=== PATIENT | male | born 1945 | race Caucasian/White ===

== ENCOUNTER 2016-09-28 15:11 | Emergency (ER) | payer MEDICARE, OTHER ==
[2016-09-28 15:39] VITALS: BP 139/76
== END 2016-09-28 16:55 | disposition left against medical advice (07) ==
LOC: UCEAST 15:11
DX: S29.9XXA Unspecified injury of thorax, initial encounter (principal); X58.XXXA Exposure to other specified factors, initial encounter; Y93.9 Activity, unspecified; Y92.9 Unspecified place or not applicable; Z53.21 Procedure and treatment not carried out due to patient leaving prior to being seen by health care provider

== ENCOUNTER 2016-09-29 08:27 | Emergency (ER) | payer MEDICARE, OTHER ==
[2016-09-29 08:38] VITALS: BP 119/63
--- NOTE | 2016-09-29 10:53 | RAD ---
Indication: Right rib injury. 3 views of the right ribs demonstrates no fracture. No pneumothorax is noted. Lung jolley are otherwise clear. There is fracture of the left fifth rib posteriorly. IMPRESSION: No fracture of the right ribs is noted.
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
== END 2016-09-29 11:05 | disposition home or self-care (01) ==
LOC: UCEAST 08:27
DX: S20.20XA Contusion of thorax, unspecified, initial encounter (principal); W18.30XA Fall on same level, unspecified, initial encounter; Y93.9 Activity, unspecified; Y92.9 Unspecified place or not applicable; I10 Essential (primary) hypertension; Z87.891 Personal history of nicotine dependence
CPT/HCPCS: 99212; G0463

== ENCOUNTER 2018-01-23 05:57 | Inpatient (IN) | payer MEDICARE, OTHER ==
--- NOTE | 2018-01-10 18:59 | HP ---
HISTORY AND PHYSICAL: DATE OF ADMISSION: 01/23/18 He is entering the hospital on 01/23/18 for a left total knee replacement. CHIEF COMPLAINT: Left knee pain and swelling. HISTORY OF PRESENT ILLNESS: The patient has had left knee problems over the last couple of years. He had an arthroscopic surgery about 10 months ago and that was not successful for him. He has had continued left knee pain, especially after prolonged sitting, a lot of difficulty getting off the floor. There has been pain. There has been catching. There has been swelling. There have been no fevers or chills. He has been eating and drinking without difficulty. We would like to be walking and doing stairs more comfortably and playing golf, and for this reason, a left total knee was recommended. He has severe arthritis in the lateral compartment of the left knee. PAST MEDICAL HISTORY: He is cared for by Dr. Cortez. No history of heart attack or chest pain. No history of DVT or pulmonary embolism. No bleeding tendencies. No cancers. He has had right leg weakness since his childhood and he has had low back surgery with right sciatica. The left knee pain currently is mainly lateral knee, lateral thigh radiates distally, lateral smart some, and sometimes goes to his left low back. 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 Disturbance of consciousness. Anxiety. MEDICATIONS: Daily meds: 1. Melatonin 10 mg. 2. Lamotrigine 100 mg for seizure disorder. No recent seizures. 3. Lisinopril/hydrochlorothiazide 20/12.5 mg 1 a day. 4. Aspirin 81 mg each day. 5. Zolpidem 12.5 mg at bedtime. ALLERGIES: No known allergies. No allergies to metal. SOCIAL HISTORY: He quit smoking 40 years ago. Alcohol was minimal to none. PHYSICAL EXAMINATION GENERAL: Current examination, well nourished, well developed, not acutely distressed. VITAL SIGNS: Respirations 17, pulse 74, blood pressure 143/84. Weight 212 pounds, height 68 inches. His pain varies in the left knee from 3 to 6/10. LUNGS: Clear. HEART: Regular. S1, S2 normal. No murmurs or gallops. ABDOMEN: Round, soft, nontender. I do not appreciate organomegaly. EXTREMITIES: Left knee shows an effusion with extension 0, flexion 110, satisfactory overall alignment. Thigh and calf are soft. His right smart and calf are smaller than his left. The patient is able to do a straight leg raise without any difficulty. Left knee extension 0, flexion 110, stable MCL and LCL. Some swelling bilaterally of the legs and ankles. NEUROLOGIC: The cranial nerves are grossly intact. DIAGNOSTIC STUDIES: X-rays, severe arthritis of the left knee in the lateral compartment. IMPRESSION: Severe left knee arthritis. PLAN: Left total knee replacement. The goals, risks, and complications of the surgical care have been reviewed with the patient in my office. [id number]/CPS #: [id number] MTDD
[~2018-01-23 05:57] MED LIST: Buffered Lidocaine 0.9% SYRIN* 5 ML/SYR SYRINGE INTRADERM ONE
[2018-01-23] MEDS ORDERED: Famotidine IV* 10 MG/ML 2 ML (20 mg) IV ONE (06:00)
--- OUTSIDE RECORDS SUMMARY | 2018-01-23 06:02 | XMS REPORT ---
:1945 External Reference #:[id number] Author Organization [facility] Address [address] [place] [address] Phone [phone] Care Team Providers Name Role Phone Faisal Cortez MD Primary Care Physician Unavailable Payers Type Date Identification Numbers Payment Provider Subscriber Medicare Primary Effective: Policy Number: Medicare Virgilio Silva 2012 [id number] PayID: [id number] [address] [place] [address] Medigap Part B Policy Number: [id number] [employer] Virgilio Silva Group Number: [id number] [address] PayID: [id number] [place] [address] Medigap Part B Policy Number: [id number] Medicare Virgilio Silva PayID: [id number] [address] [place] [address] Problems Date Description Provider Status Onset: 04/30/2014 Localization-related epilepsy Aaron Bajwa M.D. 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 Cigarette Use Former Cigarette Smoker quit at age 46 ETOH Use Rarely consumes alcohol Smoking Patient is a former smoker Recreational Drug Use Denies Drug Use Daily Caffeine Consumes on average 3 cups of regular coffee per day Exercise Type/Frequency 02/05/2015 Exercises sporadically Golf, stationary bike, walks ocassionally Allergies, Adverse Reactions, Alerts Date Description Reaction Status Severity Comments 01/22/2013 NKDA active Medications Medication Date Status Form Strength Qnty SIG Indications Ordering Provider Melatonin ER 11/28 Active Tablets 10mg 1 by mouth Marybeth Joiner ER every MD night at bedtime Lamotrigine 05/01 Active Tablets 100mg 180ta 3 tabs by Leonard rob Rob M.D. twice a day Lisinopril-Spencer Active Tablets 20-12.5mg 1 by mouth Unknown chlorothiazide /0000 every day Aspirin Active Tablets 81mg 1 by mouth Unknown /0000 every day Cyclobenzaprine Active Tablets 10mg TK 1 T PO Unknown HCL / qd hs Zolpidem Active Tablets 12.5mg 1 Tab AT Unknown Tartrate ER / ER hs Percocet 04/12 Hx Tablets 5-325mg 20tab take 1 s tabs as MD Zayda - needed for 09/05 pain 6 hours. do not combine with tylenol Melatonin ER 02/04 Hx Tablets 3mg 30tab 1 tablet Marybeth Joiner ER s at night 1 MD - to 2 hours 11/28 before bedtime Lamotrigine 02/07 Hx Tablets 200mg 60tab 1 twice a Aaron SGenevieve s Vida Kamara M.D. 05/01 Citalopram Hx Tablets 20mg 30tab 1 po qd Unknown Hydrobromide /0000 s - 12/03 Lisinopril Hx Tablets 10mg 90tab 1 po qd Unknown /0000 s - 06/05 Sleep Aid Hx Tablets 25mg 1 po qhs Unknown /0000 - 06/10 Clonazepam Hx Tablets 0.5mg 1 by mouth Unknown /0000 twice a - day as 06/05 Ambien Hx Tablets 10mg one by Unknown /0000 mouth at - bedtime as 12/03 needed sleep Prilosec Hx Capsules 40mg 1 by mouth Unknown /0000 DR every day - 06/07 Mobic Hx Tablets 15mg once daily Unknown /0000 with food - 06/07 Ultram Hx Tablets 50mg 1-2 by Unknown /0000 mouthevery - 6 hours as 02/03 Flexeril Hx 10mg 1 tab at Unknown /0000 bedtime - 06/07 OTC Sleep Aid Hx 1 po qhs Unknown /0000 prn - 11/27 Medications Administered in Office Medication Date Status Form Strength Qnty SIG Indications Ordering Provider Depomedrol Administered Injection Dirk Clayton, 40MG 018 M.D. Depomedrol Administered Injection Dirk Clayton, 40MG 017 M.D. Vital Signs Date Vital Result Comment 01/10/2018 Height 68.5 inches 5'8.50" Weight 212.00 lb Heart Rate 74 /min BP Systolic 143 mmHg BP Diastolic 84 mmHg Respiratory Rate 17 /min Body Temperature 98.1 F Pain Level 3 BMI (Body Mass Index) 31.8 kg/m2 11/29/2017 Height 68.5 inches 5'8.50" Weight 205.00 lb Heart Rate 77 /min BP Systolic 153 mmHg BP Diastolic 87 mmHg Body Temperature 98.0 F BMI (Body Mass Index) 30.7 kg/m2 11/28/2017 Height 68.5 inches 5'8.50" Weight 215.50 lb Heart Rate 76 /min BP Systolic 172 mmHg BP Diastolic 102 mmHg BMI (Body Mass Index) 32.3 kg/m2 10/16/2017 Height 68.5 inches 5'8.50" Weight 205.00 lb BP Systolic 128 mmHg BP Diastolic 78 mmHg Respiratory Rate 18 /min Body Temperature 98.1 F Pain Level 3 BMI (Body Mass Index) 30.7 kg/m2 09/06/2017 Height 68.5 inches 5'8.50" Weight 205.00 lb BP Systolic 132 mmHg BP Diastolic 78 mmHg Respiratory Rate 18 /min Body Temperature 98.2 F Pain Level 7 BMI (Body Mass Index) 30.7 kg/m2 04/24/2017 Height 68.5 inches 5'8.50" Weight 202.00 lb BP Systolic 130 mmHg BP Diastolic 68 mmHg Respiratory Rate 18 /min Body Temperature 97.5 F Pain Level 0 BMI (Body Mass Index) 30.3 kg/m2 04/03/2017 Height 68.5 inches 5'8.50" Weight 202.00 lb BP Systolic 130 mmHg BP Diastolic 72 mmHg Respiratory Rate 18 /min Pain Level 7 BMI (Body Mass Index) 30.3 kg/m2 03/13/2017 Height 68.5 inches 5'8.50" Weight 202.00 lb BP Systolic 140 mmHg BP Diastolic 76 mmHg Respiratory Rate 18 /min Pain Level 0 BMI (Body Mass Index) 30.3 kg/m2 02/27/2017 Height 68.5 inches 5'8.50" Weight 202.00 lb Heart Rate 76 /min BP Systolic Sitting 130 mmHg BP Diastolic Sitting 78 mmHg Body Temperature 97.9 F BMI (Body Mass Index) 30.3 kg/m2 11/28/2016 Height 67.5 inches 5'7.50" Weight 216.00 lb Heart Rate 68 /min BP Systolic Sitting 120 mmHg BP Diastolic Sitting 70 mmHg Respiratory Rate 12 /min BMI (Body Mass Index) 33.3 kg/m2 12/08/2015 Height 67.5 inches 5'7.50" Weight 208.00 lb Heart Rate 80 /min BP Systolic Sitting 130 mmHg BP Diastolic Sitting 70 mmHg Respiratory Rate 16 /min BMI (Body Mass Index) 32.1 kg/m2 03/31/2015 Height 67.5 inches 5'7.50" Weight 206.00 lb with shoes Heart Rate 76 /min BP Systolic Sitting 136 mmHg LA, reg cuff BP Diastolic Sitting 84 mmHg LA, reg cuff BP Systolic Standing 136 mmHg LA BP Diastolic Standing 86 mmHg LA Respiratory Rate 16 /min BMI (Body Mass Index) 31.8 kg/m2 Ejection Fraction 55-60% 02/12/15 Stress Echo 02/06/2015 Height 67.5 inches 5'7.50" Weight 205.00 lb Heart Rate 80 /min BP Systolic Sitting 120 mmHg BP Diastolic Sitting 78 mmHg Respiratory Rate 17 /min BMI (Body Mass Index) 31.6 kg/m2 02/05/2015 Height 67.5 inches 5'7.50" Weight 202.00 lb w/o shoes Heart Rate 86 /min reg BP Systolic 126 mmHg Lue, reg cuff BP Diastolic 88 mmHg Lue, reg cuff BP Systolic Sitting 140 mmHg Rue, reg cuff BP Diastolic Sitting 90 mmHg Rue, reg cuff BP Systolic Standing 130 mmHg Rue BP Diastolic Standing 86 mmHg Rue Respiratory Rate 18 /min BMI (Body Mass Index) 31.2 kg/m2 04/30/2014 Height 67.5 inches 5'7.50" Weight 208.00 lb Heart Rate 64 /min BP Systolic Sitting 150 mmHg BP Diastolic Sitting 88 mmHg Respiratory Rate 16 /min BMI (Body Mass Index) 32.1 kg/m2 01/21/2014 Height 67.5 inches 5'7.50" Weight 207.00 lb Heart Rate 80 /min BP Systolic Sitting 152 mmHg BP Diastolic Sitting 82 mmHg Respiratory Rate 16 /min BMI (Body Mass Index) 31.9 kg/m2 10/08/2013 Height 69 inches 5'9" Weight 215.00 lb Heart Rate 68 /min BP Systolic Sitting 120 mmHg BP Diastolic Sitting 80 mmHg Respiratory Rate 16 /min BMI (Body Mass Index) 31.7 kg/m2 01/22/2013 Heart Rate 68 /min BP Systolic Sitting 146 mmHg BP Diastolic Sitting 84 mmHg Respiratory Rate 12 /min Results Test Date Test Result H/L Range Note Laboratory test 04/11/2017 Surgical Pathology SEE RESULT BELOW 1 finding CBC Auto Diff 12/01/2016 White Blood Count 4.6 10^3/uL 3.5-10.8 Red Blood Count 4.41 10^6/uL 4.0-5.4 Hemoglobin 14.3 g/dL 14.0-18.0 Hematocrit 42 % 42-52 Mean Corpuscular Volume 96 fL High 80-94 Mean Corpuscular Hemoglobin 33 pg High 27-31 Mean Corpuscular HGB Conc 34 g/dL 31-36 Red Cell Distribution Width 13 % 10.5-15 Platelet Count 196 10^3/uL 150-450 Mean Platelet Volume 9 um3 7.4-10.4 Abs Neutrophils 2.2 10^3/uL 1.5-7.7 Abs Lymphocytes 1.6 10^3/uL 1.0-4.8 Abs Monocytes 0.5 10^3/uL 0-0.8 Abs Eosinophils 0.1 10^3/uL 0-0.6 Abs Basophils 0 10^3/uL 0-0.2 Abs Nucleated RBC 0 10^3/uL Granulocyte % 48.6 % 38-83 Lymphocyte % 36.1 % 25-47 Monocyte % 11.4 % High 1-9 Eosinophil % 3.1 % 0-6 Basophil % 0.8 % 0-2 Nucleated Red Blood Cells % 0 Comp Metabolic Panel 12/01/2016 Sodium 145 mmol/L 133-145 Potassium 4.7 mmol/L 3.5-5.0 Chloride 110 mmol/L 101-111 Co2 Carbon Dioxide 26 mmol/L 22-32 Anion Gap 9 mmol/L 2-11 Glucose 97 mg/dL 70-100 Blood Urea Nitrogen 15 mg/dL 6-24 Creatinine 0.97 mg/dL 0.67-1.17 BUN/Creatinine Ratio 15.5 8-20 Calcium 9.3 mg/dL 8.6-10.3 Total Protein 6.9 g/dL 6.4-8.9 Albumin 4.6 g/dL 3.2-5.2 Globulin 2.3 g/dL 2-4 Albumin/Globulin Ratio 2.0 1-3 Total Bilirubin 0.60 mg/dL 0.2-1.0 Alkaline Phosphatase 75 U/L 34-104 Alt 17 U/L 7-52 Ast 18 U/L 13-39 Egfr Non- 76.7 >60 Egfr 98.7 >60 2 Laboratory test finding 12/01/2016 Lamotrigine (Lamictal) 9.9 g/mL 2.5 - 15.0 3 Comp Metabolic Panel 12/10/2015 Sodium 136 mmol/L 133-145 Potassium 4.3 mmol/L 3.5-5.0 Chloride 102 mmol/L 101-111 Co2 Carbon Dioxide 26 mmol/L 22-32 Anion Gap 8 mmol/L 2-11 Glucose 141 mg/dL High 70-100 Blood Urea Nitrogen 16 mg/dL 6-24 Creatinine 1.01 mg/dL 0.67-1.17 BUN/Creatinine Ratio 15.8 8-20 Calcium 9.4 mg/dL 8.6-10.3 Total Protein 6.5 g/dL 6.4-8.9 Albumin 4.0 g/dL 3.2-5.2 Globulin 2.5 g/dL 2-4 Albumin/Globulin Ratio 1.6 1-3 Total Bilirubin 0.40 mg/dL 0.2-1.0 Alkaline Phosphatase 60 U/L 34-104 Alt 15 U/L 7-52 Ast 17 U/L 13-39 Egfr Non- 73.5 >60 Egfr 94.5 >60 4 CBC Auto Diff 12/10/2015 White Blood Count 4.7 10^3/uL 3.5-10.8 Red Blood Count 4.32 10^6/uL 4.0-5.4 Hemoglobin 13.9 g/dL Low 14.0-18.0 Hematocrit 40 % Low 42-52 Mean Corpuscular Volume 94 fL 80-94 Mean Corpuscular Hemoglobin 32 pg High 27-31 Mean Corpuscular HGB Conc 34 g/dL 31-36 Red Cell Distribution Width 13 % 10.5-15 Platelet Count 201 10^3/uL 150-450 Mean Platelet Volume 8 um3 7.4-10.4 Abs Neutrophils 2.8 10^3/uL 1.5-7.7 Abs Lymphocytes 1.4 10^3/uL 1.0-4.8 Abs Monocytes 0.3 10^3/uL 0-0.8 Abs Eosinophils 0.1 10^3/uL 0-0.6 Abs Basophils 0.1 10^3/uL 0-0.2 Abs Nucleated RBC 0 10^3/uL Granulocyte % 58.5 % 38-83 Lymphocyte % 29.7 % 25-47 Monocyte % 6.2 % 1-9 Eosinophil % 3.1 % 0-6 Basophil % 2.5 % High 0-2 Nucleated Red Blood Cells % 0.1 Laboratory test finding 12/10/2015 Lamotrigine (Lamictal) 9.7 g/mL 2.5 - 15.0 5 Laboratory test finding 12/30/2013 Lamotrigine 8.6 g/mL 2.5 - 15.0 6 Laboratory test finding 10/14/2013 Amylase 32 U/L 29-103 Lipase 19 U/L 11.0-82.0 Comp Metabolic Panel 10/14/2013 Sodium 138 mmol/L 133-145 Potassium 4.9 mmol/L 3.7-5.6 Chloride 105 mmol/L 101-111 Co2 Carbon Dioxide 28 mmol/L 22-32 Anion Gap 5 mmol/L 2-11 Glucose 94 mg/dL 70-100 Blood Urea Nitrogen 15 mg/dL 6-24 Creatinine 0.87 mg/dL 0.67-1.17 BUN/Creatinine Ratio 17.2 8-20 Calcium 9.3 mg/dL 8.6-10.3 Total Protein 6.4 g/dL 6.4-8.9 Albumin 4.3 g/dL 3.2-5.2 Globulin 2.1 g/dL 2-4 Albumin/Globulin Ratio 2.0 1-3 Total Bilirubin 0.40 mg/dL 0.2-1.0 Alkaline Phosphatase 87 U/L 34-104 Alt 11 U/L 7-52 Ast 13 U/L 13-39 Egfr Non- 87.8 >60 Egfr 112.9 >60 7 CBC No Diff 10/14/2013 White Blood Count 4.0 10^3/uL Low 4.8-10.8 Red Blood Count 4.04 10^6/uL 4.0-5.4 Hemoglobin 12.4 g/dL Low 14.0-18.0 Hematocrit 36 % Low 42-52 Mean Corpuscular Volume 90 fL 80-94 Mean Corpuscular Hemoglobin 31 pg 27-31 Mean Corpuscular HGB Conc 34 g/dL 31-36 Red Cell Distribution Width 14 % 10.5-15 Platelet Count 212 10^3/uL 150-450 Mean Platelet Volume 9 um3 7.4-10.4 Laboratory test finding 10/14/2013 Lamotrigine 9.2 g/mL 2.5 - 15.0 8 1 SEE RESULT BELOW Name: VIRGILIO SILVA : [address]: Doug Arnold MD Acct: [id number] Unit: [id number] AGE: 72 Location: OR Re04/11/17 SEX: M Status: DEP ARC SPEC: [id number] DAMON: 04/11/[address] [facility] [address]: Doug Arnold MD REQ: [id number] RECD: 04/11/17 STATUS: SOUT _ ORDERED: LEVEL 3 FINAL DIAGNOSIS Knee, left, arthroscopic shavings: -- Benign cartilaginous tissue. PRE-OPERATIVE DIAGNOSIS Left knee lateral meniscal tear GROSS DESCRIPTION The specimen is received fresh labeled, Shavings Left Knee, and consists of a 3.6 x 3.2 x 0.6 cm aggregate of yellow and white tissue fragments. Coin Counter And Wrapper sections, one cassette. Signed (signature on file) Milagros Up MD 02/19 0916 END OF REPORT * ML=Testing performed at Main Lab DEPARTMENT OF PATHOLOGY, [address] [place] [address] Gio Carter M.D. Director [facility] # [id number] 2 Because ethnic data is not always readily available, this report includes an eGFR for both -Americans and non- Americans. The National Kidney Disease Education Program (NKDEP) does not endorse the use of the MDRD equation for patients that are not between the ages of 18 and 70, are , have extremes of body size, muscle mass, or nutritional status, or are non- or non-. According to the National Kidney Foundation, irrespective of diagnosis, the stage of the disease is based on the level of kidney function: Stage Description GFR(mL/min/1.73 m(2)) 1 Kidney damage with normal or decreased GFR 90 2 Kidney damage with mild decrease in GFR 60-89 3 Moderate decrease in GFR 30-59 4 Severe decrease in GFR 15-29 5 Kidney failure <15 (or dialysis) 3 ADDITIONAL INFORMATION This test was developed and its performance characteristics determined by [facility] in a manner consistent with CLIA requirements. This test has not been cleared or approved by the U.S. Food and Drug Administration. Test Performed by: [place] [address] 4 Because ethnic data is not always readily available, this report includes an eGFR for both -Americans and non- Americans. The National Kidney Disease Education Program (NKDEP) does not endorse the use of the MDRD equation for patients that are not between the ages of 18 and 70, are , have extremes of body size, muscle mass, or nutritional status, or are non- or non-. According to the National Kidney Foundation, irrespective of diagnosis, the stage of the disease is based on the level of kidney function: Stage Description GFR(mL/min/1.73 m(2)) 1 Kidney damage with normal or decreased GFR 90 2 Kidney damage with mild decrease in GFR 60-89 3 Moderate decrease in GFR 30-59 4 Severe decrease in GFR 15-29 5 Kidney failure <15 (or dialysis) 5 Test Performed by: [place] [address] [place] [employer]: Wesley Quinones II, M.D., Ph.D. 6 Test Performed by: [place] [address] [place] [employer]: Darius Gordillo III, M.D. 7 Because ethnic data is not always readily available, this report includes an eGFR for both -Americans and non- Americans. The National Kidney Disease Education Program (NKDEP) does not endorse the use of the MDRD equation for patients that are not between the ages of 18 and 70, are , have extremes of body size, muscle mass, or nutritional status, or are non- or non-. According to the National Kidney Foundation, irrespective of diagnosis, the stage of the disease is based on the level of kidney function: Stage Description GFR(mL/min/1.73 m(2)) 1 Kidney damage with normal or decreased GFR 90 2 Kidney damage with mild decrease in GFR 60-89 3 Moderate decrease in GFR 30-59 4 Severe decrease in GFR 15-29 5 Kidney failure <15 (or dialysis) 8 Test Performed by: [place] [id number] [place] [employer]: Darius Gordillo III, M.D. Procedures Date CPT Code Description Status 09/06/2017 95278 Inject/Drain Joint/Bursa Major W/O US Completed 04/11/2017 84211 Arthroscopy,Knee,Meniscectomy Medial Or Lateral Completed 04/11/2017 16807 Arthroscopy,Knee,Meniscectomy Medial Or Lateral Completed 04/11/2017 34288 Arthroscopy, Knee,Surgical;Debridement/Shaving Completed Articular Cartldg 04/11/2017 64126 Arthroscopy, Knee,Surgical;Debridement/Shaving Completed Articular Cartldg 02/27/2017 20826 Inject/Drain Joint/Bursa Major W/O US Completed 01/09/2017 85834 Polysomnography Sleep Staging 4+ Parameters Completed 02/12/2015 20959 ECHO Stress Test Incl Perf Contiuous ekg Monitoring Completed W/Phys Superv 02/05/2015 09981 EKG Tracing & Interpretation Completed 11/05/2008 54054 EKG, Interpretation Only Completed Encounters Type Date Location Provider CPT E/M Dx Office Visit 11/29/2017 [facility] M.D. 86580 M17.12 2:45p C.M.A. Office Visit 11/28/2017 [facility] [address] G40.219 9:30a G93.81 R40.0 I10 Office Visit 10/16/2017 9:45a [facility] M.D. 62415 M17.12 C.M.A. Office Visit 09/06/2017 9:30a [facility] M.D. 88355 M17.12 C.M.A. Office Visit 04/03/2017 3:15p [facility] M.D. 59481 S83.262D C.M.A. S83.282A Office Visit 03/13/2017 10:45a [facility] M.D. 65138 S83.262D C.M.A. M17.12 Office Visit 02/27/2017 9:45a [facility] M.D. 49882 S83.262A C.M.A. M17.12 S83.242A S83.282A Office Visit 11/28/2016 9:30a [facility] [place] [address] G40.209 Services Of Senior Web Engineer R40.0 Office Visit 12/08/2015 2:30p [place] [address] G40.209 Services Of Senior Web Engineer Office Visit 03/31/2015 11:20a [facility], 52694 I73.9 Senior Web Engineer DO FACC G40.209 R94.31 I10 Office Visit 02/06/2015 2:00p [place] [address] 345.41 Services Of Senior Web Engineer Office Visit 02/05/2015 11:00a [facility], 04047 443.9 Senior Web Engineer DO FACC 794.31 Office Visit 04/30/2014 11:45a [facility] Aaron Bajwa 40178 345.41 Services Of Senior Web Engineer M.D. 348.81 Office Visit 01/21/2014 1:30p [facility] Aaron Bajwa 51370 345.41 Services Of Senior Web Engineer M.D. 348.81 Office Visit 10/08/2013 9:30a [facility] Aaron Bajwa 35642 348.81 Services Of Senior Web Engineer M.D. 345.41 Office Visit 01/22/2013 8:45a [facility] Aaron Bajwa 95385 345.40 Services Of Senior Web Engineer M.D. 348.81 Office Visit 10/03/2012 10:15a [facility] Aaron Bajwa 01952 348.81 Services Of Senior Web Engineer M.D. 345.41 Office Visit 05/01/2012 10:45a [facility] Aaron Bajwa, 50635 345.41 Services Of Sade Silva 348.81 Plan of Care Future Appointment(s):01/23/2018 7:30 pm - FELIPE Braxton at [facility]..01/23/2018 7:30 pm - Doug Arnold M.D. at [facility].01/10/2018 - Doug Arnold M.D.M17.12 Unilateral primary osteoarthritis, left kneeFollow up:Left knee replacement January 23, 2018 Stay active and do left knee exercises
[2018-01-23] MEDS ORDERED: ceFAZolin 2 GM PREMIX (*) 2 GM/50 ML BAG IVPB ONE (06:07)
[2018-01-23] MEDS ORDERED: Famotidine IV* 10 MG/ML 2 ML (20 mg) ONE (06:07)
[2018-01-23] MEDS ORDERED: Tranexamic Acid 1,000 MG/10 ML 1,000 MG in NS 0.9% 100 ML* 100 ML IV ONE (07:00)
[2018-01-23] MEDS ORDERED: ROPIVACAINE 5 MG/ML 30 ML BTL (0.5%) ONE ×3 (07:23→08:50)
[2018-01-23] MEDS ORDERED: Lidocaine 1%* 5 ML VIAL ONE (07:29)
[2018-01-23] MEDS ORDERED: fentaNYL* 50 MCG/ML 2 ML VIAL (100 MCG VIAL) ONE ×2 (07:29→08:27)
[2018-01-23] MEDS ORDERED: Midazolam* 1 MG/ML 5 ML VIAL (5 MG) ONE (07:30)
[2018-01-23] MEDS ORDERED: KETAMINE HCL* 50 MG/ML 10 ML VIAL ONE (07:48)
[2018-01-23] MEDS ORDERED: Lidocain 1% EPI 1:100,000 * 30 ML MDV ONE (08:06)
[2018-01-23] MEDS ORDERED: Naloxone* 0.4 MG/ML 1 ML VIAL IV PRN (08:46)
[2018-01-23] MEDS ORDERED: oxyCODONE/Acetamin 5/325 MG* TAB PO PRN (08:46)
[2018-01-23] MEDS ORDERED: DiMENhydriNATE IV* 50 MG/ML VIAL IV PUSH PRN (08:46)
[2018-01-23] MEDS ORDERED: Lidocaine 1% MPF wEPI 200,000* 30 ML SDV ONE (08:50)
[2018-01-23] MEDS ORDERED: Ketorolac INJ* 30 MG/ML 1 ML VIAL ONE (09:07)
[2018-01-23] MEDS ORDERED: Propofol* 10 MG/ML 20 ML BTL IV PUSH ONE (09:07)
[2018-01-23] MEDS ORDERED: Ondansetron INJ* 2 MG/ML VIAL ONE (09:07)
[2018-01-23] MEDS ORDERED: Lidocaine 2% PF * 5 ML VIAL ONE (09:07)
[2018-01-23] MEDS ORDERED: Dexamethasone IV* 4 MG/ML 1 ML (4 MG) ONE (09:07)
[2018-01-23] MEDS ORDERED: Artificial Tears* 15 ML BTL ONE (09:08)
[2018-01-23] MEDS ORDERED: HYDROmorphone INJ* 0.5 MG/0.5 ML SYRINGE ONE ×3 (09:43→11:13)
[2018-01-23] MEDS ORDERED: Ondansetron INJ* 2 MG/ML VIAL IV PRN (10:54)
[2018-01-23] MEDS ORDERED: oxyCODONE TAB* 5 MG TAB PO PRN (10:54)
[2018-01-23] MEDS ORDERED: Docusate CAP* 100 MG PO PRN (10:54)
[2018-01-23] MEDS ORDERED: Cyclobenzaprine TAB* 10 MG PO PRN (10:54)
[2018-01-23] MEDS ORDERED: diPHENhydraMINE IV* 50 MG/ML 1 ml VIAL (BENADRYL) IV PRN (10:54)
[2018-01-23] MEDS ORDERED: Ondansetron ODT TAB* 4 MG PO PRN (10:54)
[2018-01-23] MEDS ORDERED: Magnesium Hydroxide LIQ* 30 ML UDC PO PRN (10:54)
[2018-01-23] MEDS ORDERED: Morphine INJ* 2 MG/ML 1 ML SYRINGE (TWO MG - NEW SYRINGE VERSION) IV PRN (10:54)
[2018-01-23] MEDS ORDERED: diPHENhydraMINE PO* 25 MG PO PRN (10:54)
[2018-01-23] MEDS: HYDROmorphone INJ* 0.5 MG/0.5 ML SYRINGE IV PRN ×5 (10:57→12:01)
[2018-01-23] MEDS ORDERED: Acetaminophen TAB* 325 MG PO SCH (11:00)
[2018-01-23] MEDS ORDERED: traMADol TAB* 50 MG PO SCH (11:00)
[2018-01-23] MEDS ORDERED: ZOLPIDEM 10 MG PO PRN (11:01)
[2018-01-23] MEDS ORDERED: oxyCODONE/Acetamin 5/325 MG* TAB ONE (11:32)
[2018-01-23] MEDS ORDERED: hydrALAZINE IV* 20 MG/ML VIAL IV SLOW PU PRN (12:33)
--- NOTE | 2018-01-23 12:34 | RAD ---
INDICATION: Status post total left knee replacement surgery. COMPARISON: Comparison is made with a prior study from September 06, 2017. TECHNIQUE: 2 views of the left knee were obtained. FINDINGS: The patient is status post total left knee replacement surgery. The bones and prostheses are in normal alignment. There are 2 surgical drains present anterior. The surgical hardware appears intact. There are multiple surgical efren which project anteriorly over the midline. IMPRESSION: STATUS POST TOTAL LEFT KNEE REPLACEMENT SURGERY.
[2018-01-23] MEDS ORDERED: hydrALAZINE IV* 20 MG/ML VIAL ONE (12:36)
--- NOTE | 2018-01-23 14:38 | CONS ---
CC: Dr. Cortez; Dr. Arnold * CONSULTATION REPORT: DATE OF CONSULT: 01/23/18 PRIMARY CARE PROVIDER: Dr. Cortez. REQUESTING PHYSICIAN FOR CONSULT: Dr. Arnold. MY ATTENDING PHYSICIAN WHILE IN THE HOSPITAL: Dr. Torres (report dictated by Iván Martinez NP). REASON FOR MEDICAL CONSULTATION: Evaluation and medical management of comorbid medical conditions. HISTORY OF PRESENT ILLNESS: I will refer you to Dr. Arnold's H and P for further details. In short, Mr. Silva is a 72-year-old male patient who has been dealing with left knee pain for some time. He had been failing conservative therapy. He sought care with Dr. Arnold and the patient was brought to the OR today for an elective total knee replacement. He carries a history of seizures, epilepsy. He also carries a history of anxiety, hypertension. He was evaluated in the PACU. He states his pain is about 3/10. He states he is not feeling nauseated. He just feels a little tired. Denies feeling lightheaded or dizzy. He states he is not having any chest pain or shortness of breath. He denies having any abdominal pain. He states he does not feel nauseous. The last time that he had a grand mal seizure was when he was being evaluated at the EMU up in [place]. He said he is otherwise well controlled. He is back driving. He is currently just on Lamictal twice a day and he takes this religiously. He denies having any recent change in medications. Because of his medical complexity, we were asked to evaluate in consult. PAST MEDICAL HISTORY: Significant for: 1. Epilepsy. 2. Anxiety. 3. Hypertension. 4. 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 PAST SURGICAL HISTORY: He has had a left knee arthroplasty. Today, he had a left total knee replacement and he has had spinal surgery. MEDICATIONS: Home meds according to the list that he provided preop include: 1. Ambien 10 mg at bedtime as needed. 2. Lamictal 300 mg p.o. b.i.d. 3. Lisinopril 10 mg p.o. daily. 4. Ibuprofen 800 mg every 8 hours as needed. 5. Aspirin 81 mg a day. ALLERGIES TO MEDICATIONS: Include no known drug allergies. FAMILY HISTORY: He says his mother at the age of 98 from old age. Father' s history is unknown, when the patient was very young. SOCIAL HISTORY: The patient is a former smoker. He no longer smokes. He does drink alcohol occasionally. Surrogate decision maker is his . REVIEW OF SYSTEMS: There is no documented fever. He denies having any significant weight change. There is no double vision. He denies having any ear discharge. There is no rhinorrhea. No sore throat. No thyroid enlargement. He denies having any chest pain. There is no orthopnea. There is no nocturnal dyspnea. He denied having any abdominal pain. There is no nausea, no vomiting. No dysuria, no frequency. No seizure, no loss of consciousness. No pruritus and no skin ulcerations. Review of 14 systems completed, all others negative. PHYSICAL EXAMINATION: Vital Signs: Blood pressure 165/92, but the last blood pressure was 170/102, respirations were 18, O2 sat 98% on 2 L, temperature was 97.0, pulse 69. General: At this time, Mr. Silva is a 72-year-old male patient. He appears to be well nourished, well developed. He does not appear to be in any acute distress. HEENT: Head: Atraumatic. Eyes: Sclerae anicteric and not pale. Neck was supple. Throat: Oral mucosa appears to be moist. No oropharyngeal erythema. Heart: Sounds S1, S2. Regular rate and rhythm. No murmurs, rubs, or gallops. Lungs: Clear to auscultation bilaterally. No wheezes, rales, or rhonchi. Abdomen: Soft, flat. Bowel sounds were hypoactive. Extremities: Distal CSM checks were intact. He has limited range of motion to the left knee as it is the operative leg. There is full range of motion of the upper extremities. Neurologically, he is awake, alert, oriented x3. He had no gross focal deficits. His skin is intact with exception he has an incision to the left knee, which is covered with an Jose dressings and a Hemovac drain is intact. LABORATORY DATA/DIAGNOSTIC STUDIES: Labs, preop WBC of 4.9, RBC of 4.55, hemoglobin 14.3, hematocrit of 42, platelet count 210. INR was 0.96. PTT of 32.7. His sodium was 140, potassium of 4.7, chloride of 104, bicarb 30, BUN 16, creatinine of 0.90, glucose was 85. He had a preop EKG that shows a normal sinus rhythm with a right bundle-branch block, no ST elevations or T wave inversions. Old medical records were reviewed. ASSESSMENT AND PLAN: Mr. Silva is a 72-year-old male patient coming in to the [facility]opedic [facility] today for an elective left total knee. We were asked to evaluate in consult. Recommendations at this point are: 1. Status post left total knee. I defer the management to Dr. Arnold and his team. 2. History of seizures, epilepsy secondary to temporal lobe sclerosis. We will continue his Lamictal. Seizure precautions have been ordered. We will continue to monitor. Should he have any seizures, we certainly would give him p.r.n. Ativan if needed and we would consider Neurology consult. At this point , we will just continue to monitor. He has been well controlled on Lamictal. 3. History of anxiety. Continue supportive care. 4. Hypertension. Blood pressure is now well controlled here. Last one was 170 /102. I am going to give him 5 of IV hydralazine. Now, he is not in a lot of pain. He states his pain is better controlled. I will continue his lisinopril and I am adding 5 mg of Norvasc. 5. DVT prophylaxis. We will defer to the primary team. 6. Code status. Full code. 7. Fluids, electrolytes, and nutrition. I would recommend a heart healthy diet. TIME SPENT: Time spent on consult 60 minutes, greater than half that time was spent [id number] with the patient obtaining my history and physical, the other half time was spent going over the plan of care with the patient, implementing the plan of care. I did discuss the plan of care with my attending, Dr. Torres, he is in agreement. IVÁN MARTINEZ, MILAGROS [id number]/[facility] #: [id number] ESTEBAN
[2018-01-23] MEDS: traMADol TAB* 50 MG PO SCH ×2 (14:45→20:42)
[2018-01-23] MEDS: amLODIPine TAB* 5 MG PO SCH (15:19)
[2018-01-23] MEDS: Acetaminophen TAB* 325 MG PO SCH ×2 (15:34→23:25)
[2018-01-23] MEDS: ceFAZolin 1 GM ADVAN(*) 1 GM in NS 0.9% 50 ML* 50 ML IVPB SCH ×2 (16:08→23:30)
--- NOTE | 2018-01-23 16:26 | OP ---
CC: Dr. Cortez * DATE OF OPERATION: 01/23/18 - ROOM #341 DATE OF : 49 SURGICAL CARE: Left knee. SURGEON: Doug Arnold MD. ASSISTANTS: 1. Alix Oneill, surgical dressing maker. 2. FELIPE Braxton, first coat operator. ANESTHESIOLOGIST: Dr. Krysta Meredith ANESTHESIA: LMA general and Dr. Meredith did a left thigh adductor canal block. PRE-OP DIAGNOSIS: Severe degenerative arthritis of the left knee in the lateral compartment. POST-OP DIAGNOSIS: Severe degenerative arthritis of the left knee in the lateral compartment. OPERATIVE PROCEDURE: Left total knee replacement. COMPONENTS UTILIZED: Mari Persona knee was utilized. A size 9 femur, a 35 patella, a size G tibia, and 10 articular surface. Each component was cemented and the tibia component has a extra 2 to 3 cm stem. COMPLICATIONS: There were no complications. BLOOD LOSS: 200 mL. REPLACEMENT: Crystalloid fluids. CONDITION: Stable to the recovery room. Tourniquet control was utilized for the cleanup and cementing phase of this case. OPERATIVE INDICATIONS: Severe knee pain and disability. He has been no longer responsive to nonoperative care and the knee replacement was recommended and accepted by him. DESCRIPTION OF PROCEDURE: The patient was brought to the operating room and placed on the operating table in a supine position. Following the administration, the adductor canal block had been done in the holding area by Dr. Meredith. In the operating room, the anesthetic was administered, LMA was inserted. Almanzar catheter was inserted. The left proximal thigh was wrapped with a tourniquet. The left foot pulses were noted to both be present by Doppler. The left lower extremity was wrapped with the proximal thigh tourniquet and then prepped from the tourniquet to the tips of the toes with ChloraPrep prep and this was done after preliminary chlorhexidine prep in the region of the left knee only. After prepping, draping and sealing off, we did our universal protocol time-out confirming Virgilio Silva and plan for left total knee replacement, we all agreed and we proceeded. The surgical care was done with the hip and knee acutely flexed. The left foot was then padded with foot piece. The skin incision went from 2 fingerbreadths proximal to the superior pole of the patella to the medial aspect of the tibial tubercle. Skin and subcu were divided. Hemostasis checked and infused throughout this case utilizing electrocautery. The prepatellar bursa was traversed. The quadriceps tendon was divided 3 to 4 cm proximal to the superior pole of the patella in the region of the rectus femoris staying as closed to the vastus medialis muscle in the tendon as possible medial parapatellar. The tibia and the intermedius soft tissues were elevated, were divided down to the bone 2 cm medial to the tibial tubercle and medial soft tissues and the tibia were all elevated subperiosteally going around to the deep MCL and then to the posteromedial corner of the knee. The knee had abundant clear straw colored synovial fluid. The patella was made so that could be everted. Synovectomy was completed around the patella including removal of most of the infrapatellar fat pad. The interchondral osteophytes were removed. The main pathology was its cartilage was just gone and the lateral femoral condyle was very irregular and no cartilage left. The remainder of the anterior horn and medial meniscus were excised. Later in the case, the remainder of the posterior horn lateral meniscus was excised. The distal anterior femur was exposed subperiosteally for referencing and measuring. Once we had this exposure, then the proximal tibial cut was made first. Our goal here was to have a tibial surface that would be perpendicular to the long axis of the tibia and have a slight posterior slope removing several millimeters of bone from each side. Next, the femoral intramedullary drill was utilized and intramedullary canal was then entered. It was suctioned to discourage embolization. The knee did not have flexion contracture, so the distal femoral cutting guide was applied at 0 with 6 degrees of valgus and the distal femoral cut was completed and the extension gap was nice at 10. The femur was measured for a 9. The anterior, posterior and chamfering cuts were completed. We then finished the removal of the posterior horn medial meniscus carefully preserving the MCL, posterior horn lateral meniscus, similarly the PCL, small osteophyte from the posterior medial and lateral femoral condyle. At this stage, we had nice ligamentous balance and flexion with a 10 as well. The femur was completed with the intercondylar cut out. The femur was then irrigated and suctioned x6 and bone plug was inserted. The tibia was then completed for the size G and the knee was articulated and extended with a G tibia, 10 articular surface, and the 9 femur with full knee extension, stable ligaments in extension and stable ligaments in 90 degrees of flexion. The patella was cut flat, it was measured for a 35, 3 drill holes were made and these were undercut for optimal cement interdigitation. The lateral release was not necessary. The leg was then exsanguinated. Tourniquet elevated to 275. The knee was cleaned with pulsed saline in extension completing the gutters, the medial exposure, and the patella and bursa. This irrigation was about 2.5 L. The knee was then flexed. Retractors were put into position and all bony surfaces were irrigated again with the pulsed saline and then each surface was dried. The cement was mixed, the components were cemented into position, patella followed by the tibia, followed by the femur, each was impacted. Excess cement was removed and the knee was articulated and extended during the final hardening. All excess cement was removed. The knee was then disarticulated once again and we checked posteriorly for retained cement fragments, bleeding points. Tourniquet was deflated. Hemostasis checked and utilizing electrocautery as we closed the pericapsular tissues; posteromedial, lateral and medial were infiltrated with Ropivacaine with 1% Xylocaine with epinephrine 30 mL. The careful closure was then done. The quad mechanism reapproximated with interrupted #1 Vicryl in a [id number] fashion. Two drains were brought out to superolateral suprapatellar pouch and the medial retinaculum closed with the same and then distally we used 0 Vicryl. Deep bursa, we used 0 Vicryl. The superficial subcu with 3-0 Vicryl and then efren on the skin. We irrigated several times during closure with saline. The skin was cleaned after applying the efren with saline and then covered with Betadine soaked release, sterile gauze and the same dressing was placed around the 2 drains and then sterile Webril, cryotherapy cuff, then an Jose bandages loosely applied. The pulses were intact at the end of the case. The knee was extended completely and flexed completely during closure. Flexion was almost felt about the distance and the extension was 0 and the patient was then returned to the recovery room in stable and satisfactory condition, having tolerated the procedure very well. [id number]/[facility] #: [id number] [facility] HOSPITALMiriam
[2018-01-23] MEDS: Ibuprofen TAB* 800 MG PO PRN (17:46)
[2018-01-23] MEDS: lamoTRIgine TAB(*) 100 MG PO SCH (20:42)
[2018-01-24] MEDS: traMADol TAB* 50 MG PO SCH ×3 (03:30→15:23)
[2018-01-24 06:10] LABS: Hematocrit 33 % (42-52); Hemoglobin 11.4 g/dl (14.0-18.0); Mean Platelet Volume 8.3 um3 (7.4-10.4); Platelet Count 181 10^3/ul (150-450)
[2018-01-24 06:28] LABS: EGFR Non-African American 90.3 (>60)
--- NOTE | 2018-01-24 07:03 | PN ---
Progress Note - Progress Note Date of Service: 01/24/18 Note: VSStable. Hct 33%. Breathing easily. 2 drains removed. N/V left foot intact. Output discussed with nursing. Plans: Up with walker and OOB to chair.
[2018-01-24] MEDS: Acetaminophen TAB* 325 MG PO SCH ×2 (07:56→15:24)
[2018-01-24] MEDS: lamoTRIgine TAB(*) 100 MG PO SCH (07:58)
[2018-01-24] MEDS: ceFAZolin 1 GM ADVAN(*) 1 GM in NS 0.9% 50 ML* 50 ML IVPB SCH (07:58)
[2018-01-24] MEDS: amLODIPine TAB* 5 MG PO SCH (07:58)
[2018-01-24] MEDS ORDERED: Aspirin TAB* 325 MG PO SCH (09:00)
[2018-01-24] MEDS ORDERED: Lisinopril TAB* 10 MG PO SCH (09:00)
[2018-01-24] MEDS: Ibuprofen TAB* 800 MG PO PRN (12:54)
[2018-01-24 12:55] VITALS: BP 148/71
--- NOTE | 2018-01-24 13:15 | PN ---
Progress Note - Progress Note Date of Service: 01/24/18 SOAP: Subjective: []Patient seen at bedside. He feels well and desires to go home today. He progressed towards his goals with PT this morning. Denies chest pain, shortness of breath, dizziness, nausea. He was urinating frequently this morning which he attributes to a large fluid intake. He denies any dysuria or suprapubic discomfort. Objective: []General: Well appearing, NAD LLE:: Dressing changed. Incision CDI without erythema or discharge.Thigh is soft and nontender. DF/PF intact. DP2+. Sensation intact distally BL calves supple and nontender without erythema, edema or palpable cords. Assessment: []POD 1 sp left total knee arthroplasty Plan: []WBAT PT/OT ASA 325 mg qd x 30 days DC to home. Goals met with PT Vital Signs Temp 98.1 F 01/24/18 11:24 Pulse 78 01/24/18 11:24 Resp 16 01/24/18 11:24 BP 148/71 01/24/18 11:24 Pulse Ox 98 01/24/18 11:24 Intake & Output 01/23/18 01/24/18 01/24/18 18:59 06:59 18:59 Intake Total 2940 960 1262.4 Output Total 875 1660 500 Balance 2065 -700 762.4 Intake: IV Fluids 2700 882.4 ABX - CEFAZOLIN 51.4 LR 2700 831 Oral 240 960 380 Output: Hemovac Amount #2 310 Urine 325 1350 500 Almanzar 300 Estimated Blood Loss 250 Other: # Bowel Movements 0 Laboratory Last Values Hgb 11.4 g/dl (14.0-18.0) L 01/24/18 05:56 Hct 33 % (42-52) L 01/24/18 05:56 Plt Count 181 10^3/ul (150-450) 01/24/18 05:56 MPV 8.3 um3 (7.4-10.4) 01/24/18 05:56 Sodium 141 mmol/L (135-145) 01/24/18 05:56 Potassium 4.0 mmol/L (3.5-5.0) 01/24/18 05:56 Chloride 107 mmol/L (101-111) 01/24/18 05:56 Carbon Dioxide 30 mmol/L (22-32) 01/24/18 05:56 Anion Gap 4 mmol/L (2-11) 01/24/18 05:56 BUN 10 mg/dL (6-24) 01/24/18 05:56 Creatinine 0.84 mg/dL (0.67-1.17) 01/24/18 05:56 Est GFR ( Amer) 109.3 (>60) 01/24/18 05:56 Est GFR (Non-Af Amer) 90.3 (>60) 01/24/18 05:56 BUN/Creatinine Ratio 11.9 (8-20) 01/24/18 05:56 Glucose 100 mg/dL (70-100) 01/24/18 05:56 Calcium 8.6 mg/dL (8.6-10.3) 01/24/18 05:56
--- NOTE | 2018-01-25 05:39 | DS ---
DISCHARGE SUMMARY: DATE OF ADMISSION: 01/23/18 DATE OF DISCHARGE: 01/24/18 ATTENDING PROVIDER: Dr. Arnold * (DICTATED BY FELIPE CORADO) INDUSTRIAL AUTOMATION SPECIALIST: Alix Oneill, surgical orderly, and FELIPE Braxton ANESTHESIOLOGIST: Dr. Krysta Meredith PREOPERATIVE DIAGNOSIS: Severe degenerative arthritis of the left knee in the lateral compartment. OPERATIVE PROCEDURE: Left total knee replacement. HISTORY: Severe knee pain and disability. No longer responsive to nonoperative care elected to undergo left total knee replacement. HOSPITAL COURSE: The patient was admitted to [facility] on . He underwent left total knee arthroplasty without complication. He was seen by our hospitalist service due to elevated blood pressure. A 5 mg of amlodipine was started with better blood pressure control thereafter. Postop day 1, the patient is well appearing, in no acute distress. Dressing was changed. Incision was clean, dry, intact. No erythema or discharge. Thigh was soft and nontender. Dorsiflexion, plantar flexion intact. DP pulse 2+ and sensation intact distally. Bilateral calves suppler and nontender without erythema, edema or palpable cords. DISCHARGE MEDICATIONS: New medication for home will include: 1. Aspirin 325 mg p.o. daily for 30 days. The patient will hold his aspirin 81 mg during this time and will restart his 81 mg after the 30 days when he finishes the 325 mg tablet. 2. Docusate 100 mg p.o. b.i.d. p.r.n. 3. Oxycodone 5 mg p.o. q.4 hours p.r.n., max daily dose of 4. 4. Tramadol 50 mg 1 to 2 tabs every 4 to 6 hours at max daily dose of 8. 5. Amlodipine 5 mg daily. DISCHARGE PLAN: The patient will be weightbearing as tolerated. He may shower after 01/26/18. Aspirin 325 mg daily for 30 days to prevent blood clots. Pain control with tramadol 50 mg 1 to 2 tabs every 4 to 6 hours as needed for pain, max daily dose of 8 for day. Oxycodone 5 mg tab 1 every 4 to 6 hours as needed for pain, max daily dose of 4. The blood pressure was high during his stay, so new medication called amlodipine 5 mg was added. He will take 1 tablet daily. Please follow up with your primary care provider within 1 week for further instructions and refill. Followup with Dr. Arnold within 4 to 6 week for a first postop appointment. Call with any questions sooner. FELIPE CORADO [id number]/[facility] #: [id number] ESTEBAN
== END 2018-01-24 18:00 | disposition home health service (06) | DRG 470 ==
LOC: AA 05:57 → SSU 10:54
PROVIDERS: ADMIT Orthopaedic Surgery; ATTEND Orthopaedic Surgery
PROC: 0SRD0J9 Replacement of Left Knee Joint with Synthetic Substitute, Cemented, Open Approach (ICD-10-PCS; principal; 2018-01-23 07:30)
DX: M17.12 Unilateral primary osteoarthritis, left knee (principal); G40.209 Localization-related (focal) (partial) symptomatic epilepsy and epileptic syndromes with complex partial seizures, not intractable, without status epilepticus; M54.31 Sciatica, right side; G93.81 Temporal sclerosis; F41.9 Anxiety disorder, unspecified; M25.462 Effusion, left knee; I10 Essential (primary) hypertension; I45.10 Unspecified right bundle-branch block; M25.762 Osteophyte, left knee; Z87.891 Personal history of nicotine dependence; Z72.89 Other problems related to lifestyle; Z79.82 Long term (current) use of aspirin; Z86.12 Personal history of poliomyelitis
CPT/HCPCS: 36415; 80048; 85014; 85018; 85049; A9270-GY; G8978-GP-CI; G8978-GP-CL; G8979-GP-CI; G8980-GP-CI; G8987-GO-CJ; G8988-GO-CJ; G8989-GO-CJ; J0360; J0690; J1100; J1170; J1885; J2001; J2250; J2405; J2704; J2795; J3010